=== PATIENT | male | born 1965 | race Caucasian/White ===

== ENCOUNTER 2017-02-14 19:33 | Emergency (ER) | payer SELFPAY ==
[~2017-02-14] VITALS: Ht 185.4 cm; Wt 113.0 kg
[2017-02-14] MEDS ORDERED: SODIUM CHLORIDE 0.9% 1,000 ML IV ONE (19:46)
[2017-02-14] MEDS ORDERED: SODIUM CHLORIDE 0.9% 1,000ML IVBOLUS ONE ×2 (20:00→23:00)
[2017-02-14 20:19] LABS: BLOOD UREA NITROGEN 15 mg/dL (7-18)
[2017-02-14] MEDS ORDERED: KETOROLAC 60 MG/2 ML IVPush ONE (20:30)
[2017-02-14] MEDS ORDERED: AMPICILLIN/SULBACTAM 3 GM in SODIUM CHLORIDE 0.9% 100 ML IV ONE (20:30)
[2017-02-14] MEDS ORDERED: ONDANSETRON 2MG/ML, 2ML IVPush ONE (20:30)
[2017-02-14] MEDS ORDERED: KETOROLAC 30 MG/1 ML ONE (20:30)
[2017-02-14] MEDS ORDERED: ONDANSETRON 2MG/ML, 2ML ONE (20:30)
[2017-02-14] MEDS ORDERED: morphine SULFATE 10 MG/ML, 1ML IVPush ONE (20:30)
[2017-02-14] MEDS ORDERED: MORPHINE SULFATE 4 MG/ML, 1ML ONE (20:30)
[2017-02-14 23:37] VITALS: BP 136/80
== END 2017-02-14 23:39 | disposition home or self-care (01) ==
LOC: ED 23:33
DX: L03.115 Cellulitis of right lower limb (principal)
CPT/HCPCS: 36415; 80048; 82040; 83605; 84145; 85025; 87040; 96361; 96365; 96375; 99284; J0295; J1885; J2270; J2405; J7030

== ENCOUNTER 2017-07-24 19:40 | Inpatient (IN) | payer OTHER ==
[~2017-07-24] VITALS: Ht 185.4 cm; Wt 115.6 kg
[2017-07-24] MEDS ORDERED: ACETAMINOPHEN 500 MG TABLET ONE (19:55)
[2017-07-24] MEDS ORDERED: IBUPROFEN 200 MG TABLET ONE (19:55)
[2017-07-24] MEDS ORDERED: SODIUM CHLORIDE FLUSH 10ML SYR IVF ONE (20:00)
[2017-07-24] MEDS ORDERED: IBUPROFEN 200 MG TABLET PO ONE (20:00)
[2017-07-24] MEDS ORDERED: SODIUM CHLORIDE 0.9% 1,000ML IVBOLUS ONE (20:00)
[2017-07-24] MEDS ORDERED: ACETAMINOPHEN 325 MG TABLET PO ONE (20:00)
[2017-07-24 20:29] LABS: HEMATOCRIT 43.5 % (39.2-51.8); HEMOGLOBIN 14.7 g/dL (13.7-18.0); WHITE BLOOD COUNT 14.3 x10^3/uL (3.4-10)
[2017-07-24 20:44] LABS: ASPARTATE AMINO TRANSFERASE 17 U/L (15-37); BLOOD UREA NITROGEN 11 mg/dL (7-18)
[2017-07-24] MEDS ORDERED: AMPICILLIN/SULBACTAM 3 GM in SODIUM CHLORIDE 0.9% 100 ML IVPB ONE (21:00)
[2017-07-24] MEDS ORDERED: VANCOMYCIN PER PHARMACY MC PRN (21:00)
[2017-07-24 21:02] LABS: RAPID INFLUENZA A Negative (Negative); RAPID INFLUENZA B Negative (Negative)
[2017-07-24] MEDS ORDERED: VANCOMYCIN 2,100 MG in SODIUM CHLORIDE 0.9% 500 ML IV ONE (21:30)
[2017-07-24] MEDS ORDERED: OXYcodone IR 5MG TABLET PO PRN (22:00)
[2017-07-24] MEDS ORDERED: ONDANSETRON 2MG/ML, 2ML IVPush PRN (22:00)
[2017-07-24] MEDS ORDERED: TEMAZEPAM 15 MG CAPSULE PO PRN (22:00)
[2017-07-24] MEDS ORDERED: hydrALAzine 20 MG/ML, 1ML IVPush PRN (22:00)
[2017-07-24] MEDS ORDERED: morphine SULFATE 10 MG/ML, 1ML IVPush PRN (22:00)
[2017-07-24 22:45] VITALS: BP 114/74
[2017-07-25] MEDS: AMPICILLIN/SULBACTAM 3 GM in SODIUM CHLORIDE 0.9% 100 ML IV SCH ×5 (00:10→22:30)
[2017-07-25] MEDS: SODIUM CHLORIDE 0.9% 1,000 ML IV SCH ×3 (00:10→22:30)
[2017-07-25 03:12] VITALS: BP 135/81
[2017-07-25] MEDS: ENOXAPARIN 40 MG/0.4 ML SQ SCH (05:32)
[2017-07-25 05:57] LABS: HEMATOCRIT 42.1 % (39.2-51.8); HEMOGLOBIN 14.4 g/dL (13.7-18.0); WHITE BLOOD COUNT 13.7 x10^3/uL (3.4-10)
[2017-07-25 06:13] LABS: BLOOD UREA NITROGEN 12 mg/dL (7-18)
[2017-07-25] MEDS ORDERED: PNEUMOCOCCAL 23 VACCINE IM-VACC ONE (06:30)
[2017-07-25] MEDS ORDERED: FLU VACC QS2017-18 (36MOS+) UP/PF 0.5 ML IM-VACC ONE (06:30)
[2017-07-25 07:42] VITALS: BP 138/85
[2017-07-25 13:55] VITALS: BP 132/87
[2017-07-25 19:29] VITALS: BP 118/76
[2017-07-25] MEDS: ACETAMINOPHEN 325 MG TABLET PO PRN (19:51)
[2017-07-26 00:47] VITALS: BP 132/71
[2017-07-26] MEDS: AMPICILLIN/SULBACTAM 3 GM in SODIUM CHLORIDE 0.9% 100 ML IV SCH ×4 (04:07→23:56)
[2017-07-26] MEDS: ENOXAPARIN 40 MG/0.4 ML SQ SCH (06:02)
[2017-07-26 06:14] LABS: HEMATOCRIT 40.6 % (39.2-51.8); HEMOGLOBIN 13.6 g/dL (13.7-18.0); WHITE BLOOD COUNT 11.1 x10^3/uL (3.4-10)
[2017-07-26 06:33] LABS: BLOOD UREA NITROGEN 13 mg/dL (7-18)
[2017-07-26 08:00] VITALS: BP 139/68
[2017-07-26] MEDS: SODIUM CHLORIDE 0.9% 1,000 ML IV SCH (10:31)
[2017-07-26] MEDS ORDERED: VANCOMYCIN PER PHARMACY MC PRN (12:00)
[2017-07-26] MEDS ORDERED: PHARMACOKINETIC MONITORING MC PRN (12:30)
[2017-07-26] MEDS ORDERED: PHARMACOKINETIC CONSULTATION MC ONE (12:30)
[2017-07-26] MEDS ORDERED: GADOBUTROL 10 MMOL/10 ML PFS ONE (13:20)
[2017-07-26 13:55] VITALS: BP 128/63
[2017-07-26] MEDS: VANCOMYCIN 2,000 MG in SODIUM CHLORIDE 0.9% 500 ML IV SCH (14:01)
[2017-07-26] MEDS: ACETAMINOPHEN 325 MG TABLET PO PRN (14:09)
[2017-07-26] MEDS ORDERED: KETOROLAC 30 MG/1 ML IVPush PRN (14:30)
[2017-07-26 20:32] VITALS: BP 157/75
[2017-07-27] MEDS: VANCOMYCIN 2,000 MG in SODIUM CHLORIDE 0.9% 500 ML IV SCH ×2 (02:04→14:15)
[2017-07-27] MEDS: SODIUM CHLORIDE 0.9% 1,000 ML IV SCH ×2 (02:04→14:15)
[2017-07-27 02:07] VITALS: BP 134/87
[2017-07-27] MEDS: AMPICILLIN/SULBACTAM 3 GM in SODIUM CHLORIDE 0.9% 100 ML IV SCH ×2 (05:22→11:20)
[2017-07-27] MEDS: ENOXAPARIN 40 MG/0.4 ML SQ SCH (05:22)
[2017-07-27 05:36] LABS: HEMATOCRIT 39.2 % (39.2-51.8); WHITE BLOOD COUNT 7.9 x10^3/uL (3.4-10)
[2017-07-27 07:07] VITALS: BP 146/89
[2017-07-27 13:42] VITALS: BP 127/84
[2017-07-27] MEDS ORDERED: ACET325T14 PO (14:43)
[2017-07-27] MEDS ORDERED: AMOX1TAB64 PO (14:43)
[2017-07-27] MEDS ORDERED: SULF1TAB24 PO (14:43)
[2017-07-27] MEDS ORDERED: IBUP-1484 PO (14:43)
== END 2017-07-27 17:35 | disposition home or self-care (01) | DRG 872 ==
LOC: ED 21:57 → SUATTDRO 21:57 → 4NOR 22:35 → ED 22:48
PROVIDERS: ADMIT Hospitalist; ATTEND Hospitalist
DX: A41.9 Sepsis, unspecified organism (principal); E44.0 Moderate protein-calorie malnutrition; L03.115 Cellulitis of right lower limb; E87.1 Hypo-osmolality and hyponatremia; R65.20 Severe sepsis without septic shock; F17.210 Nicotine dependence, cigarettes, uncomplicated; I10 Essential (primary) hypertension; Z68.33 Body mass index [BMI] 33.0-33.9, adult; Z90.49 Acquired absence of other specified parts of digestive tract; Z23 Encounter for immunization
CPT/HCPCS: 36415; 80048; 80053; 83605; 83735; 84100; 84145; 85025; 85651; 86140; 87040; 87400; 90686; 90732; 96361; 96365; 96368; A9585; J0295; J1650; J3370; J7030; J7040

== ENCOUNTER 2017-09-20 16:23 | Inpatient (IN) | payer MEDICAID, OTHER ==
[~2017-09-20] VITALS: Ht 185.4 cm; Wt 108.4 kg
[~2017-09-20 16:23] MED LIST: ACET325T14 PO; AMOX1TAB64 PO; IBUP-1484 PO; SULF1TAB24 PO
[2017-09-20] MEDS ORDERED: CEFAZOLIN PMX 1GM/50ML 50 ML IV ONE (20:00)
[2017-09-20] MEDS ORDERED: CEFTRIAXONE PMX 1GM/50ML 50 ML ONE (20:00)
[2017-09-20] MEDS ORDERED: SODIUM CHLORIDE FLUSH 10ML SYR IVF ONE (20:00)
[2017-09-20 20:06] LABS: HCT (SEDRATE) 42.8 % (39.2-51.8); MEAN CORPUSCULAR HEMOGLOBIN 29.4 pg (27.5-34.5); MEAN CORPUSCULAR HGB CONC 34.3 g/dL (33.2-36.2); MEAN CORPUSCULAR VOLUME 85.8 fL (81-97); MEAN PLATELET VOLUME 7.2 fL (7.4-10.4); PLATELET COUNT 236 x10^3/uL (130-400); RED BLOOD COUNT 4.98 x10^6/uL (4.38-5.82); RED CELL DISTRIBUTION WIDTH 14.3 % (9.4-14.8)
[2017-09-20 20:18] LABS: ALBUMIN 3.2 g/dL (3.4-5.0); ANION GAP 7 mmol/L (5-15); CALCIUM 8.9 mg/dL (8.5-10.1); CHLORIDE 101 mmol/L (98-107); CREATININE 1.15 mg/dL (0.7-1.3)
[2017-09-20 20:25] LABS: MD YES
[2017-09-20 20:27] LABS: BAND#(MANUAL) 0.77 x10^3/uL; BANDS%(MANUAL) 7 % (0-7); EOS#(MANUAL) 0.11 x10^3/uL (0.0-0.4); EOS% (MANUAL) 1 % (1-7); LYMPH#(MANUAL) 1.87 x10^3/uL (1-3.4); LYMPHS% (MANUAL) 17 % (22-44); MONOS#(MANUAL) 0.88 x10^3/uL (0.3-2.7); MONOS% (MANUAL) 8 % (2-9); REACTIVE LYMPHS # (MANUAL) 0.11 x10^3/uL (0-0); REACTIVE LYMPHS % (MANUAL) 1 % (0-0); SEG#(MANUAL) 7.26 x10^3/uL (1.8-6.8); SEGS% (MANUAL) 66 % (42-75)
[2017-09-20 20:28] LABS: <PLATELET ESTIMATE> ADEQUATE; <PLT MORPHOLOGY> NORMAL PLT MORPH; <RBC MORPHOLOGY> NORMAL
[2017-09-20 21:26] LABS: SEDIMENTATION RATE 36 mm/hr (0-10)
[2017-09-20] MEDS ORDERED: SODIUM CHLORIDE FLUSH 10ML SYR IVF PRN (22:00)
[2017-09-20] MEDS ORDERED: ACETAMINOPHEN 325 MG TABLET PO PRN (23:30)
[2017-09-20] MEDS: NICOTINE 14MG/24 HR PATCH.TD24 TD SCH (23:30)
[2017-09-20] MEDS ORDERED: ONDANSETRON 2MG/ML, 2ML IVPush PRN (23:30)
[2017-09-21 07:04] VITALS: BP 127/72
[2017-09-21 07:19] VITALS: BP 114/75
[2017-09-21] MEDS: CEFAZOLIN PMX 2GM/50ML 50 ML IV SCH ×2 (07:47→15:32)
[2017-09-21 16:40] VITALS: BP 116/65
[2017-09-21 19:56] VITALS: BP 132/80
[2017-09-21] MEDS: NICOTINE 14MG/24 HR PATCH.TD24 TD SCH (23:23)
[2017-09-22] MEDS: CEFAZOLIN PMX 2GM/50ML 50 ML IV SCH ×2 (00:25→08:29)
[2017-09-22 02:00] VITALS: BP 118/66
[2017-09-22 09:06] VITALS: BP 133/69
[2017-09-22] MEDS ORDERED: CEPH-368 PO ×2 (10:05→10:13)
== END 2017-09-22 12:10 | disposition home or self-care (01) | DRG 603 ==
LOC: ED 20:03 → EDIP 21:44 → 4NOR 23:45
PROVIDERS: ADMIT Internal Medicine; ATTEND Internal Medicine
DX: L03.012 Cellulitis of left finger (principal); M86.142 Other acute osteomyelitis, left hand; F17.200 Nicotine dependence, unspecified, uncomplicated; I10 Essential (primary) hypertension; Z90.49 Acquired absence of other specified parts of digestive tract; Z71.6 Tobacco abuse counseling
CPT/HCPCS: 36415; 80048; 82040; 85025; 85651; 86140; 87040; 96365; J0690

== ENCOUNTER 2017-10-17 12:14 | Inpatient (IN) | payer MEDICAID ==
[~2017-10-17] VITALS: Ht 185.4 cm; Wt 116.5 kg
[~2017-10-17 12:14] MED LIST changes: +CEPH-368 PO
[2017-10-17] MEDS ORDERED: AMPICILLIN/SULBACTAM 3 GM in SODIUM CHLORIDE 0.9% 100 ML IV ONE (13:43)
[2017-10-17] MEDS ORDERED: SODIUM CHLORIDE 0.9% 1,000ML IVBOLUS ONE (14:00)
[2017-10-17 14:15] LABS: BASOPHILS # (AUTO) 0.05 x10^3/uL (0-0.1); BASOPHILS % (AUTO) 1 % (0-1); EOSINOPHILS # (AUTO) 0.11 x10^3/uL (0-0.4); EOSINOPHILS % (AUTO) 1 % (1-7); LYMPHOCYTES # (AUTO) 1.73 x10^3/uL (1-3.4); LYMPHOCYTES % (AUTO) 20 % (22-44); MD NO; MEAN CORPUSCULAR HEMOGLOBIN 28.4 pg (27.5-34.5); MEAN CORPUSCULAR HGB CONC 33.3 g/dL (33.2-36.2); MEAN CORPUSCULAR VOLUME 85.2 fL (81-97); MEAN PLATELET VOLUME 7.5 fL (7.4-10.4); MONOCYTES # (AUTO) 0.92 x10^3/uL (0.2-0.8); MONOCYTES % (AUTO) 11 % (2-9); NEUTROPHILS % (AUTO) 67 % (42-75); PLATELET COUNT 266 x10^3/uL (130-400); RED CELL DISTRIBUTION WIDTH 14.4 % (9.4-14.8)
[2017-10-17 14:26] LABS: ANION GAP 7 mmol/L (5-15); CALCIUM 8.3 mg/dL (8.5-10.1); CHLORIDE 106 mmol/L (98-107); CREATININE 0.93 mg/dL (0.7-1.3)
[2017-10-17 15:46] VITALS: BP 138/79
[2017-10-17] MEDS ORDERED: BACITRACIN 50,000 UNIT ONE (16:37)
[2017-10-17] MEDS ORDERED: BACITRACIN OINT 500U/GM, 15 GM ONE (16:37)
[2017-10-17] MEDS ORDERED: BUPIVACAINE/PF 0.5% ONE (16:37)
[2017-10-17] MEDS ORDERED: FENTANYL PF 100 MCG/2ML ONE ×2 (17:08→18:19)
[2017-10-17] MEDS ORDERED: MIDAZOLAM 1 MG/ML, 2ML ONE (17:08)
[2017-10-17] MEDS ORDERED: PROPOFOL 10 MG/ML, 20ML ONE (17:14)
[2017-10-17] MEDS ORDERED: SUCCINYLCHOLINE 20 MG/ML, 10ML ONE (17:14)
[2017-10-17] MEDS ORDERED: ONDANSETRON 2MG/ML, 2ML ONE (17:14)
[2017-10-17] MEDS ORDERED: METOCLOPRAMIDE 5 MG/ML, 2ML ONE (17:14)
[2017-10-17] MEDS ORDERED: HYDROmorphone 1 MG/ML, 1ML IV PRN (17:30)
[2017-10-17] MEDS ORDERED: hydrALAzine 20 MG/ML, 1ML IV PRN (17:30)
[2017-10-17] MEDS ORDERED: EPHEDRINE 50 MG/ML, 1ML IVPush PRN (17:30)
[2017-10-17] MEDS ORDERED: OXYcodone 5 MG/5 ML ORAL.SOL UDC PO PRN (17:30)
[2017-10-17] MEDS ORDERED: LABETALOL 5MG/ML, 20ML IV PRN (17:30)
[2017-10-17] MEDS ORDERED: ACETAMINOPHEN 325 MG TABLET PO PRN (17:30)
[2017-10-17] MEDS ORDERED: METOPROLOL 1 MG/ML, 5ML IV PRN (17:30)
[2017-10-17] MEDS ORDERED: MEPERIDINE/PF 25MG/0.5ML IVPush PRN (17:30)
[2017-10-17] MEDS ORDERED: ONDANSETRON 2MG/ML, 2ML IVPush PRN (17:30)
[2017-10-17] MEDS ORDERED: ALBUTEROL SULFATE 2.5 MG/3 ML NPPB PRN (17:30)
[2017-10-17] MEDS ORDERED: FENTANYL PF 100 MCG/2ML IV PRN (17:30)
[2017-10-17] MEDS ORDERED: ACETAMINOPHEN 650 MG/20.3 ML UDC ONE (18:18)
[2017-10-17] MEDS ORDERED: OXYcodone 5 MG/5 ML ORAL.SOL UDC ONE (18:19)
[2017-10-17] MEDS ORDERED: VANCOMYCIN PER PHARMACY MC PRN (19:30)
[2017-10-17] MEDS ORDERED: OXYcodone/APAP 5/325MG TABLET PO PRN (19:30)
[2017-10-17] MEDS ORDERED: ONDANSETRON 2MG/ML, 2ML IV PRN (19:30)
[2017-10-17] MEDS ORDERED: DIPHENHYDRAMINE 25 MG CAPSULE PO PRN (19:30)
[2017-10-17] MEDS ORDERED: PHARMACOKINETIC CONSULTATION MC ONE (20:00)
[2017-10-17] MEDS ORDERED: PHARMACOKINETIC MONITORING MC PRN (20:00)
[2017-10-17] MEDS: CEFAZOLIN PMX 2GM/50ML 50 ML IVPB SCH (21:58)
[2017-10-17] MEDS: POTASSIUM CHLORIDE 20 MEQ in D5%-0.45% NACL 1,000 ML IV SCH (21:58)
[2017-10-17] MEDS: SODIUM CHLORIDE FLUSH 10ML SYR IVF SCH (22:05)
[2017-10-17] MEDS: VANCOMYCIN 2,200 MG in SODIUM CHLORIDE 0.9% 500 ML IV SCH (22:45)
[2017-10-17 23:03] VITALS: BP 124/77
[2017-10-18] MEDS ORDERED: CEFAZOLIN PMX 2GM/50ML 50 ML IVPB SCH (01:00)
[2017-10-18 02:46] VITALS: BP 125/78
[2017-10-18] MEDS: POTASSIUM CHLORIDE 20 MEQ in D5%-0.45% NACL 1,000 ML IV SCH ×3 (03:35→20:50)
[2017-10-18 05:18] LABS: BASOPHILS # (AUTO) 0.02 x10^3/uL (0-0.1); BASOPHILS % (AUTO) 0 % (0-1); EOSINOPHILS % (AUTO) 0 % (1-7); LYMPHOCYTES # (AUTO) 1.15 x10^3/uL (1-3.4); LYMPHOCYTES % (AUTO) 15 % (22-44); MD NO; MEAN CORPUSCULAR HEMOGLOBIN 28.6 pg (27.5-34.5); MEAN CORPUSCULAR HGB CONC 33.3 g/dL (33.2-36.2); MEAN CORPUSCULAR VOLUME 85.9 fL (81-97); MEAN PLATELET VOLUME 7.4 fL (7.4-10.4); MONOCYTES # (AUTO) 0.67 x10^3/uL (0.2-0.8); MONOCYTES % (AUTO) 9 % (2-9); NEUTROPHILS # (AUTO) 5.86 x10^3/uL (1.8-6.8); NEUTROPHILS % (AUTO) 76 % (42-75); PLATELET COUNT 264 x10^3/uL (130-400); RED BLOOD COUNT 4.29 x10^6/uL (4.38-5.82); RED CELL DISTRIBUTION WIDTH 14.2 % (9.4-14.8)
[2017-10-18] MEDS: CEFAZOLIN PMX 2GM/50ML 50 ML IVPB SCH ×2 (06:26→14:31)
[2017-10-18 07:47] VITALS: BP 137/80
[2017-10-18] MEDS: SODIUM CHLORIDE FLUSH 10ML SYR IVF SCH ×2 (09:00→20:50)
[2017-10-18] MEDS: VANCOMYCIN 2,200 MG in SODIUM CHLORIDE 0.9% 500 ML IV SCH (10:15)
[2017-10-18 13:46] VITALS: BP 122/64
[2017-10-18] MEDS: CEFTAROLINE 600 MG in SODIUM CHLORIDE 0.9% 100 ML IV SCH (18:17)
[2017-10-18 19:03] LABS: HCT (SEDRATE) 36.1 % (39.2-51.8)
[2017-10-18 19:25] VITALS: BP 133/76
[2017-10-19 01:50] VITALS: BP_SYST 124; BP_SYST 134; BP_DIAS 48; BP_DIAS 72
[2017-10-19] MEDS: POTASSIUM CHLORIDE 20 MEQ in D5%-0.45% NACL 1,000 ML IV SCH ×3 (04:44→20:00)
[2017-10-19 05:37] LABS: ALBUMIN 2.5 g/dL (3.4-5.0); ANION GAP 5 mmol/L (5-15); CALCIUM 7.9 mg/dL (8.5-10.1); CHLORIDE 107 mmol/L (98-107)
[2017-10-19 05:42] LABS: ALANINE AMINOTRANSFERASE 17 U/L (12-78); ALKALINE PHOSPHATASE 103 U/L (45-117); BILIRUBIN,TOTAL 0.4 mg/dL (0.2-1.0); CREATININE 0.82 mg/dL (0.7-1.3); TOTAL PROTEIN 6.9 g/dL (6.4-8.2)
[2017-10-19] MEDS: CEFTAROLINE 600 MG in SODIUM CHLORIDE 0.9% 100 ML IV SCH ×2 (06:02→17:38)
[2017-10-19 07:30] VITALS: BP 153/92
[2017-10-19] MEDS: SODIUM CHLORIDE FLUSH 10ML SYR IVF SCH ×2 (09:00→20:45)
[2017-10-19 13:39] VITALS: BP 159/88
[2017-10-19 20:21] VITALS: BP 126/71
[2017-10-20 01:09] VITALS: BP 157/83
[2017-10-20] MEDS: POTASSIUM CHLORIDE 20 MEQ in D5%-0.45% NACL 1,000 ML IV SCH ×3 (04:05→20:15)
[2017-10-20] MEDS: CEFTAROLINE 600 MG in SODIUM CHLORIDE 0.9% 100 ML IV SCH (05:51)
[2017-10-20 08:24] VITALS: BP 159/94
[2017-10-20] MEDS: SODIUM CHLORIDE FLUSH 10ML SYR IVF SCH ×2 (09:00→21:11)
[2017-10-20] MEDS: SODIUM CHLORIDE 0.9% IVPB SCH (11:12)
[2017-10-20] MEDS: DAPTOMYCIN IVPB SCH (11:12)
[2017-10-20 13:49] VITALS: BP 144/80
[2017-10-20 19:36] VITALS: BP 128/75
[2017-10-21 01:15] VITALS: BP 134/74
[2017-10-21] MEDS: POTASSIUM CHLORIDE 20 MEQ in D5%-0.45% NACL 1,000 ML IV SCH ×3 (04:12→20:15)
[2017-10-21] MEDS: morphine SULFATE 10 MG/ML, 1ML IV PRN (06:54)
[2017-10-21 07:30] VITALS: BP 122/61
[2017-10-21] MEDS: SODIUM CHLORIDE FLUSH 10ML SYR IVF SCH ×2 (09:14→23:05)
[2017-10-21] MEDS: DAPTOMYCIN IVPB SCH (12:57)
[2017-10-21] MEDS: SODIUM CHLORIDE 0.9% IVPB SCH (12:57)
[2017-10-21 14:06] VITALS: BP 121/78
[2017-10-21] MEDS: HYDROcodone/APAP 5/325 TABLET PO PRN ×3 (15:09→23:10)
[2017-10-21 20:07] VITALS: BP 103/65
[2017-10-22 01:32] VITALS: BP 113/71
[2017-10-22] MEDS: HYDROcodone/APAP 5/325 TABLET PO PRN ×5 (03:16→23:15)
[2017-10-22] MEDS: POTASSIUM CHLORIDE 20 MEQ in D5%-0.45% NACL 1,000 ML IV SCH ×3 (03:23→19:41)
[2017-10-22 06:09] LABS: BASOPHILS # (AUTO) 0.04 x10^3/uL (0-0.1); BASOPHILS % (AUTO) 0 % (0-1); EOSINOPHILS # (AUTO) 0.56 x10^3/uL (0-0.4); EOSINOPHILS % (AUTO) 6 % (1-7); LYMPHOCYTES # (AUTO) 2.09 x10^3/uL (1-3.4); LYMPHOCYTES % (AUTO) 22 % (22-44); MD NO; MEAN CORPUSCULAR HGB CONC 33.5 g/dL (33.2-36.2); MEAN CORPUSCULAR VOLUME 86.7 fL (81-97); MEAN PLATELET VOLUME 7.3 fL (7.4-10.4); MONOCYTES # (AUTO) 1.04 x10^3/uL (0.2-0.8); MONOCYTES % (AUTO) 11 % (2-9); NEUTROPHILS # (AUTO) 5.92 x10^3/uL (1.8-6.8); NEUTROPHILS % (AUTO) 61 % (42-75); PLATELET COUNT 312 x10^3/uL (130-400); RED BLOOD COUNT 4.87 x10^6/uL (4.38-5.82)
[2017-10-22 06:18] LABS: CHLORIDE 102 mmol/L (98-107)
[2017-10-22 06:23] LABS: HCT (SEDRATE) 36.1 % (39.2-51.8)
[2017-10-22 06:37] LABS: ALANINE AMINOTRANSFERASE 19 U/L (12-78); ALBUMIN 2.5 g/dL (3.4-5.0); ALKALINE PHOSPHATASE 122 U/L (45-117); ANION GAP 6 mmol/L (5-15); BILIRUBIN,TOTAL 0.5 mg/dL (0.2-1.0); CALCIUM 8.4 mg/dL (8.5-10.1); CREATINE KINASE, TOTAL 45 U/L (39-308); CREATININE 0.89 mg/dL (0.7-1.3); TOTAL PROTEIN 7.4 g/dL (6.4-8.2)
[2017-10-22 07:31] VITALS: BP 114/66
[2017-10-22] MEDS: SODIUM CHLORIDE FLUSH 10ML SYR IVF SCH ×2 (07:51→19:42)
[2017-10-22] MEDS: SODIUM CHLORIDE 0.9% IVPB SCH (11:36)
[2017-10-22] MEDS: metroNIDAZOLE 500 MG TABLET PO SCH ×2 (11:36→19:36)
[2017-10-22] MEDS: DAPTOMYCIN IVPB SCH (11:36)
[2017-10-22 13:38] VITALS: BP 125/78
[2017-10-22 20:21] VITALS: BP 103/62
[2017-10-23] MEDS: morphine SULFATE 10 MG/ML, 1ML IV PRN ×7 (00:24→13:28)
[2017-10-23] MEDS: metroNIDAZOLE 500 MG TABLET PO SCH ×2 (04:28→12:31)
[2017-10-23] MEDS: HYDROcodone/APAP 5/325 TABLET PO PRN ×3 (04:28→12:04)
[2017-10-23] MEDS: POTASSIUM CHLORIDE 20 MEQ in D5%-0.45% NACL 1,000 ML IV SCH (04:32)
[2017-10-23 04:38] VITALS: BP 115/76
[2017-10-23 06:40] VITALS: BP 108/70
[2017-10-23] MEDS: SODIUM CHLORIDE FLUSH 10ML SYR IVF SCH (07:34)
[2017-10-23] MEDS: DAPTOMYCIN IVPB SCH (12:04)
[2017-10-23] MEDS: SODIUM CHLORIDE 0.9% IVPB SCH (12:04)
== END 2017-10-23 16:41 | disposition home or self-care (01) | DRG 514 ==
LOC: ED 14:09 → EDIP 14:15 → 4NOR 15:52
PROVIDERS: ADMIT Orthopaedic Surgery; ATTEND Orthopaedic Surgery
PROC: 0X6P0Z1 Detachment at Left Index Finger, High, Open Approach (ICD-10-PCS; principal; 2017-10-17 17:00)
PROC: 02HV33Z Insertion of Infusion Device into Superior Vena Cava, Percutaneous Approach (ICD-10-PCS; 2017-10-19)
PROC: B548ZZA Ultrasonography of Superior Vena Cava, Guidance (ICD-10-PCS; 2017-10-19)
DX: M86.142 Other acute osteomyelitis, left hand (principal); F17.210 Nicotine dependence, cigarettes, uncomplicated; I10 Essential (primary) hypertension; M65.142 Other infective (teno)synovitis, left hand; Z22.322 Carrier or suspected carrier of Methicillin resistant Staphylococcus aureus
CPT/HCPCS: 36415; 36569; 74018; 76937; 77001; 80048; 80053; 82040; 82550; 83605; 85025; 85651; 86140; 87040; 87070; 87075; 87077; 87147; 87186; 87205; 96361; 96365; J0295; J0690; J0712; J0878; J2250; J2405; J2704; J3010; J3370; J3480; J3490; C1751; J0330; J2270; J2765; J7030; J7040

== ENCOUNTER 2017-10-25 02:55 | Inpatient (IN) | payer MEDICAID ==
[~2017-10-25] VITALS: Ht 175.3 cm; Wt 83.0 kg
[2017-10-25] MEDS ORDERED: ONDANSETRON 2MG/ML, 2ML IVPush ONE (03:30)
[2017-10-25] MEDS ORDERED: MORPHINE SULFATE 4 MG/ML, 1ML IVPush PRN (03:30)
[2017-10-25] MEDS ORDERED: SODIUM CHLORIDE 0.9% 1,000ML IVBOLUS ONE ×2 (03:30→04:30)
[2017-10-25] MEDS ORDERED: SODIUM CHLORIDE FLUSH 10ML SYR IVF ONE (03:30)
[2017-10-25] MEDS ORDERED: KETOROLAC 30 MG/1 ML IVPush ONE (03:30)
[2017-10-25] MEDS ORDERED: ACETAMINOPHEN 325 MG TABLET PO ONE (03:30)
[2017-10-25] MEDS ORDERED: ACETAMINOPHEN 325 MG TABLET ONE (03:56)
[2017-10-25] MEDS ORDERED: KETOROLAC 30 MG/1 ML ONE (03:56)
[2017-10-25] MEDS ORDERED: ONDANSETRON 2MG/ML, 2ML ONE (03:56)
[2017-10-25] MEDS ORDERED: MORPHINE SULFATE 4 MG/ML, 1ML ONE (03:56)
[2017-10-25 04:08] LABS: BASOPHILS # (AUTO) 0.03 x10^3/uL (0-0.1); BASOPHILS % (AUTO) 0 % (0-1); EOSINOPHILS # (AUTO) 0.05 x10^3/uL (0-0.4); EOSINOPHILS % (AUTO) 0 % (1-7); LYMPHOCYTES # (AUTO) 1.02 x10^3/uL (1-3.4); LYMPHOCYTES % (AUTO) 9 % (22-44); MD NO; MEAN CORPUSCULAR HEMOGLOBIN 28.9 pg (27.5-34.5); MEAN CORPUSCULAR HGB CONC 33.8 g/dL (33.2-36.2); MEAN CORPUSCULAR VOLUME 85.5 fL (81-97); MONOCYTES % (AUTO) 11 % (2-9); NEUTROPHILS % (AUTO) 79 % (42-75); PLATELET COUNT 292 x10^3/uL (130-400); RED BLOOD COUNT 4.45 x10^6/uL (4.38-5.82); RED CELL DISTRIBUTION WIDTH 13.8 % (9.4-14.8)
[2017-10-25] MEDS ORDERED: SODIUM CHLORIDE 0.9% 1,000 ML IV ONE (04:10)
[2017-10-25 04:17] LABS: ALANINE AMINOTRANSFERASE 24 U/L (12-78); ALBUMIN 2.4 g/dL (3.4-5.0); ANION GAP 10 mmol/L (5-15); CALCIUM 8.2 mg/dL (8.5-10.1); CHLORIDE 100 mmol/L (98-107); CREATININE 1.02 mg/dL (0.7-1.3)
[2017-10-25 04:21] LABS: ALKALINE PHOSPHATASE 122 U/L (45-117); BILIRUBIN,TOTAL 0.4 mg/dL (0.2-1.0); TOTAL PROTEIN 8.1 g/dL (6.4-8.2); TROPONIN I < 0.015 ng/mL (0.000-0.045)
[2017-10-25] MEDS ORDERED: CEFEPIME 1 GM in DEXTROSE 5% 50 ML IV ONE (04:30)
[2017-10-25] MEDS ORDERED: VANCOMYCIN PER PHARMACY MC PRN ×2 (04:30→10:00)
[2017-10-25] MEDS ORDERED: VANCOMYCIN 2,000 MG in SODIUM CHLORIDE 0.9% 500 ML IV ONE (04:30)
[2017-10-25] MEDS ORDERED: AZITHROMYCIN 500 MG in SODIUM CHLORIDE 0.9% 250 ML IVPB ONE (04:30)
[2017-10-25 04:58] LABS: INTERNATIONAL NORMALIZED RATIO 1.01 (0.93-1.1); PROTHROMBIN TIME 10.4 Seconds (9.6-11.5)
[2017-10-25] MEDS ORDERED: hydrALAzine 20 MG/ML, 1ML IVPush PRN (05:30)
[2017-10-25] MEDS ORDERED: POLYETHYLENE GLYCOL 17 GM PACKET PO PRN (05:30)
[2017-10-25] MEDS ORDERED: ONDANSETRON 2MG/ML, 2ML IVPush PRN (05:30)
[2017-10-25 06:36] VITALS: BP 107/65
[2017-10-25] MEDS: ENOXAPARIN 40 MG/0.4 ML SQ SCH (08:15)
[2017-10-25] MEDS ORDERED: PHARMACOKINETIC MONITORING MC PRN (10:00)
[2017-10-25] MEDS ORDERED: PHARMACOKINETIC CONSULTATION MC ONE (10:00)
[2017-10-25] MEDS: PIPERACILLIN/TAZO/PMX 3.375GM 50 ML IV SCH ×3 (10:19→22:00)
[2017-10-25] MEDS: LACTATED RINGERS 1,000 ML IV SCH ×2 (10:19→19:35)
[2017-10-25 10:26] VITALS: BP 99/64
[2017-10-25] MEDS: metroNIDAZOLE 500 MG TABLET PO SCH ×2 (13:30→21:30)
[2017-10-25] MEDS: CEFTAROLINE 600 MG in SODIUM CHLORIDE 0.9% 100 ML IV SCH ×2 (13:32→21:31)
[2017-10-25] MEDS: HYDROcodone/APAP 5/325 TABLET PO PRN ×2 (13:37→19:33)
[2017-10-25 15:05] VITALS: BP 137/74
[2017-10-25 19:21] VITALS: BP 148/75
[2017-10-25] MEDS ORDERED: VANCOMYCIN 2,000 MG in SODIUM CHLORIDE 0.9% 500 ML IV SCH (23:00)
[2017-10-26 00:20] VITALS: BP 131/60
[2017-10-26] MEDS: HYDROcodone/APAP 5/325 TABLET PO PRN ×5 (02:04→21:37)
[2017-10-26 03:55] LABS: BASOPHILS # (AUTO) 0.01 x10^3/uL (0-0.1); BASOPHILS % (AUTO) 0 % (0-1); EOSINOPHILS # (AUTO) 0.15 x10^3/uL (0-0.4); EOSINOPHILS % (AUTO) 2 % (1-7); LYMPHOCYTES # (AUTO) 1.14 x10^3/uL (1-3.4); LYMPHOCYTES % (AUTO) 12 % (22-44); MD NO; MEAN CORPUSCULAR HEMOGLOBIN 28.7 pg (27.5-34.5); MEAN CORPUSCULAR HGB CONC 33.7 g/dL (33.2-36.2); MEAN CORPUSCULAR VOLUME 85.2 fL (81-97); MEAN PLATELET VOLUME 6.8 fL (7.4-10.4); MONOCYTES # (AUTO) 1.08 x10^3/uL (0.2-0.8); MONOCYTES % (AUTO) 12 % (2-9); NEUTROPHILS # (AUTO) 6.78 x10^3/uL (1.8-6.8); NEUTROPHILS % (AUTO) 74 % (42-75); PLATELET COUNT 267 x10^3/uL (130-400); RED BLOOD COUNT 3.64 x10^6/uL (4.38-5.82); RED CELL DISTRIBUTION WIDTH 13.9 % (9.4-14.8)
[2017-10-26 03:57] LABS: ANION GAP 7 mmol/L (5-15); CALCIUM 7.6 mg/dL (8.5-10.1); CHLORIDE 105 mmol/L (98-107); CREATININE 0.89 mg/dL (0.7-1.3)
[2017-10-26] MEDS: LACTATED RINGERS 1,000 ML IV SCH ×2 (04:10→10:07)
[2017-10-26] MEDS: PIPERACILLIN/TAZO/PMX 3.375GM 50 ML IV SCH (04:10)
[2017-10-26] MEDS: metroNIDAZOLE 500 MG TABLET PO SCH ×3 (05:16→21:22)
[2017-10-26] MEDS: CEFTAROLINE 600 MG in SODIUM CHLORIDE 0.9% 100 ML IV SCH ×3 (05:16→21:22)
[2017-10-26] MEDS: ENOXAPARIN 40 MG/0.4 ML SQ SCH (05:16)
[2017-10-26 07:16] VITALS: BP 120/68
[2017-10-26 16:14] VITALS: BP 159/78
[2017-10-26 19:21] VITALS: BP 168/98
[2017-10-27 01:28] VITALS: BP 176/83
[2017-10-27] MEDS: LACTATED RINGERS 1,000 ML IV SCH ×3 (01:44→22:50)
[2017-10-27] MEDS: HYDROcodone/APAP 5/325 TABLET PO PRN (01:45)
[2017-10-27] MEDS ORDERED: SODIUM CHLORIDE INHALATION 7%, 4 ML NPPB ONE (02:00)
[2017-10-27] MEDS: CEFTAROLINE 600 MG in SODIUM CHLORIDE 0.9% 100 ML IV SCH ×3 (05:51→21:28)
[2017-10-27] MEDS: metroNIDAZOLE 500 MG TABLET PO SCH ×3 (05:51→20:41)
[2017-10-27] MEDS: ENOXAPARIN 40 MG/0.4 ML SQ SCH (05:53)
[2017-10-27 06:44] LABS: BASOPHILS # (AUTO) 0.03 x10^3/uL (0-0.1); BASOPHILS % (AUTO) 0 % (0-1); EOSINOPHILS # (AUTO) 0.12 x10^3/uL (0-0.4); EOSINOPHILS % (AUTO) 1 % (1-7); LYMPHOCYTES # (AUTO) 1.51 x10^3/uL (1-3.4); LYMPHOCYTES % (AUTO) 16 % (22-44); MD NO; MEAN CORPUSCULAR HEMOGLOBIN 28.6 pg (27.5-34.5); MEAN CORPUSCULAR HGB CONC 33.6 g/dL (33.2-36.2); MEAN PLATELET VOLUME 7.1 fL (7.4-10.4); MONOCYTES % (AUTO) 13 % (2-9); NEUTROPHILS # (AUTO) 6.43 x10^3/uL (1.8-6.8); NEUTROPHILS % (AUTO) 69 % (42-75); PLATELET COUNT 336 x10^3/uL (130-400); RED BLOOD COUNT 3.81 x10^6/uL (4.38-5.82); RED CELL DISTRIBUTION WIDTH 13.8 % (9.4-14.8)
[2017-10-27 06:52] LABS: ALANINE AMINOTRANSFERASE 21 U/L (12-78); ANION GAP 9 mmol/L (5-15); CALCIUM 8.1 mg/dL (8.5-10.1); CHLORIDE 102 mmol/L (98-107); CREATININE 0.89 mg/dL (0.7-1.3)
[2017-10-27 06:59] LABS: ALKALINE PHOSPHATASE 103 U/L (45-117); BILIRUBIN,TOTAL 0.5 mg/dL (0.2-1.0); TOTAL PROTEIN 7.3 g/dL (6.4-8.2)
[2017-10-27 07:09] VITALS: BP 154/83
[2017-10-27 07:49] LABS: HCT (SEDRATE) 32.4 % (39.2-51.8)
[2017-10-27] MEDS ORDERED: KETOROLAC 30 MG/1 ML IVPush SCH (08:00)
[2017-10-27] MEDS ORDERED: DOXYCYCLINE 100MG TABLET PO ONE (13:00)
[2017-10-27 13:17] VITALS: BP 168/99
[2017-10-27] MEDS: KETOROLAC 30 MG/1 ML IVPush PRN ×2 (16:22→22:49)
[2017-10-27] MEDS: DOXYCYCLINE 100MG TABLET PO SCH (20:40)
[2017-10-27 20:42] VITALS: BP 167/100
[2017-10-28] MEDS: LACTATED RINGERS 1,000 ML IV SCH ×3 (02:20→20:44)
[2017-10-28 02:39] VITALS: BP 150/93
[2017-10-28] MEDS: KETOROLAC 30 MG/1 ML IVPush PRN ×2 (05:07→23:01)
[2017-10-28] MEDS: CEFTAROLINE 600 MG in SODIUM CHLORIDE 0.9% 100 ML IV SCH ×3 (06:12→20:44)
[2017-10-28] MEDS: metroNIDAZOLE 500 MG TABLET PO SCH ×3 (06:13→20:44)
[2017-10-28] MEDS: ENOXAPARIN 40 MG/0.4 ML SQ SCH (06:14)
[2017-10-28 06:56] VITALS: BP 165/93
[2017-10-28] MEDS: DOXYCYCLINE 100MG TABLET PO SCH ×2 (11:44→20:43)
[2017-10-28 12:52] VITALS: BP 158/93
[2017-10-28 20:19] VITALS: BP 150/80
[2017-10-29 02:55] VITALS: BP 164/96
[2017-10-29] MEDS: metroNIDAZOLE 500 MG TABLET PO SCH ×2 (05:21→13:08)
[2017-10-29] MEDS: CEFTAROLINE 600 MG in SODIUM CHLORIDE 0.9% 100 ML IV SCH ×2 (05:21→13:08)
[2017-10-29] MEDS: ENOXAPARIN 40 MG/0.4 ML SQ SCH (05:21)
[2017-10-29] MEDS: LACTATED RINGERS 1,000 ML IV SCH ×3 (05:21→13:02)
[2017-10-29 07:57] LABS: HCT (SEDRATE) 35.6 % (39.2-51.8)
[2017-10-29 08:01] LABS: BASOPHILS # (AUTO) 0.03 x10^3/uL (0-0.1); BASOPHILS % (AUTO) 0 % (0-1); EOSINOPHILS # (AUTO) 0.31 x10^3/uL (0-0.4); EOSINOPHILS % (AUTO) 3 % (1-7); LYMPHOCYTES % (AUTO) 19 % (22-44); MD NO; MEAN CORPUSCULAR HEMOGLOBIN 28.8 pg (27.5-34.5); MEAN CORPUSCULAR HGB CONC 33.7 g/dL (33.2-36.2); MEAN CORPUSCULAR VOLUME 85.5 fL (81-97); MEAN PLATELET VOLUME 6.7 fL (7.4-10.4); MONOCYTES % (AUTO) 11 % (2-9); NEUTROPHILS # (AUTO) 6.14 x10^3/uL (1.8-6.8); NEUTROPHILS % (AUTO) 66 % (42-75); PLATELET COUNT 432 x10^3/uL (130-400); RED BLOOD COUNT 4.16 x10^6/uL (4.38-5.82); RED CELL DISTRIBUTION WIDTH 13.8 % (9.4-14.8)
[2017-10-29 08:03] LABS: ALBUMIN 1.9 g/dL (3.4-5.0); ANION GAP 9 mmol/L (5-15); CALCIUM 7.9 mg/dL (8.5-10.1); CHLORIDE 107 mmol/L (98-107)
[2017-10-29 08:04] VITALS: BP 163/96
[2017-10-29 08:11] LABS: ALANINE AMINOTRANSFERASE 25 U/L (12-78); ALKALINE PHOSPHATASE 97 U/L (45-117); BILIRUBIN,TOTAL 0.3 mg/dL (0.2-1.0); CREATININE 0.84 mg/dL (0.7-1.3); TOTAL PROTEIN 7.4 g/dL (6.4-8.2)
[2017-10-29] MEDS: DOXYCYCLINE 100MG TABLET PO SCH (08:35)
[2017-10-29] MEDS ORDERED: DOXY100T PO (12:06)
[2017-10-29] MEDS ORDERED: METR500T PO (12:06)
[2017-10-29 13:08] VITALS: BP 154/81
[2017-10-29 14:00] VITALS: BP 138/74
== END 2017-10-29 15:06 | disposition home or self-care (01) | DRG 871 ==
LOC: ED 03:43 → EDIP 04:42 → 4NOR 05:52 → DCLOUNGE 10-29 14:48
PROVIDERS: ADMIT Hospitalist; ATTEND Hospitalist
DX: A41.9 Sepsis, unspecified organism (principal); E43 Unspecified severe protein-calorie malnutrition; J96.01 Acute respiratory failure with hypoxia; J15.9 Unspecified bacterial pneumonia; E87.1 Hypo-osmolality and hyponatremia; M86.8X8 Other osteomyelitis, other site; F17.210 Nicotine dependence, cigarettes, uncomplicated; I10 Essential (primary) hypertension; M65.9 Synovitis and tenosynovitis, unspecified; Y95 Nosocomial condition; R73.9 Hyperglycemia, unspecified; Z68.27 Body mass index [BMI] 27.0-27.9, adult; D63.8 Anemia in other chronic diseases classified elsewhere
CPT/HCPCS: 36415; 71045; 80048; 80053; 83735; 84100; 84484; 85025; 85610; 85651; 85730; 86140; 87015; 87040; 87116; 87206; 87486; 87581; 93005; 96365; 96375; J0456; J0692; J0712; J1650; J1885; J2405; J2543; J3370; J7030; J7040; J7050; J7120

== ENCOUNTER 2018-12-18 23:10 | Emergency (ER) | payer MEDICAID ==
[~2018-12-18] VITALS: Ht 185.4 cm; Wt 116.0 kg
[~2018-12-18 23:10] MED LIST changes: +ACID1TAB3 PO; +DOXY100T PO; +METR500T PO
[2018-12-18 23:12] VITALS: BP 122/67
--- NOTE | 2018-12-19 00:02 | NUR ---
PT TO ROOM IN GOWN AND AWAITING ERP AND ORDERS.
[2018-12-19] MEDS ORDERED: KETOROLAC 30 MG/1 ML ONE (00:11)
[2018-12-19] MEDS ORDERED: OXYcodone/APAP 5/325MG TABLET ONE (00:11)
[2018-12-19] MEDS ORDERED: KETOROLAC 30 MG/1 ML IM ONE (00:30)
[2018-12-19] MEDS ORDERED: OXYcodone/APAP 5/325MG TABLET PO ONE (00:30)
== END 2018-12-19 00:59 | disposition home or self-care (01) ==
LOC: ED 12-19 00:40
DX: M70.42 Prepatellar bursitis, left knee (principal); Y93.89 Activity, other specified
CPT/HCPCS: 73564; 96372; 99283; J1885

== ENCOUNTER 2019-03-18 19:58 | Inpatient (IN) | payer MEDICAID ==
[~2019-03-18] VITALS: Ht 185.4 cm; Wt 103.5 kg
--- NOTE | 2019-03-18 20:11 | NUR ---
PT WITH INCREASE IN TEMP AND HR. HX MRSA. DISCUSSED WITH ED WALLY, CYNTHIA - PT TO CORE #13 VIA WHEELCHAIR.
[2019-03-18] MEDS: SODIUM CHLORIDE 0.9% 1,000 ML IV ONE ×2 (20:44→21:34)
[2019-03-18] MEDS ORDERED: VANCOMYCIN PER PHARMACY IV ONE (21:00)
[2019-03-18] MEDS ORDERED: SODIUM CHLORIDE FLUSH 10ML SYR IVF ONE (21:00)
[2019-03-18] MEDS ORDERED: MORPHINE SULFATE 4 MG/ML, 1ML IV PRN (21:00)
[2019-03-18] MEDS ORDERED: ACETAMINOPHEN 500 MG TABLET PO ONE (21:00)
[2019-03-18] MEDS ORDERED: PIPERACILLIN/TAZO/PMX 4.5GM 100 ML IVPB ONE (21:00)
[2019-03-18] MEDS ORDERED: SODIUM CHLORIDE 0.9% 1,000ML IVBOLUS ONE ×2 (21:00→23:00)
[2019-03-18] MEDS ORDERED: VANCOMYCIN 2,000 MG in SODIUM CHLORIDE 0.9% 500 ML IV ONE (21:00)
[2019-03-18] MEDS ORDERED: ONDANSETRON 2MG/ML, 2ML IVPush ONE (21:00)
[2019-03-18] MEDS ORDERED: ACETAMINOPHEN 500 MG TABLET ONE (21:30)
[2019-03-18] MEDS ORDERED: ONDANSETRON 2MG/ML, 2ML ONE (21:30)
[2019-03-18 21:32] LABS: MEAN CORPUSCULAR HEMOGLOBIN 29.8 pg (27.5-34.5); MEAN CORPUSCULAR HGB CONC 33.5 g/dL (33.2-36.2); MEAN CORPUSCULAR VOLUME 88.8 fL (81-97); MEAN PLATELET VOLUME 7.5 fL (7.4-10.4); PLATELET COUNT 274 x10^3/uL (130-400); RED BLOOD COUNT 4.54 x10^6/uL (4.38-5.82); RED CELL DISTRIBUTION WIDTH 13.3 % (9.4-14.8)
[2019-03-18 21:42] LABS: ALANINE AMINOTRANSFERASE 29 U/L (12-78); ANION GAP 8 mmol/L (5-15); CALCIUM 8.3 mg/dL (8.5-10.1); CHLORIDE 104 mmol/L (98-107); CREATININE 1.37 mg/dL (0.7-1.3)
[2019-03-18 21:44] LABS: ALKALINE PHOSPHATASE 114 U/L (45-117); BILIRUBIN,TOTAL 0.3 mg/dL (0.2-1.0); TOTAL PROTEIN 7.4 g/dL (6.4-8.2)
--- NOTE | 2019-03-18 21:58 | NUR ---
BREAK RN FOR PRIMARY RN SHONNA. REPORT RECEIVED. PT RESTING IN POSITION OF COMFORT. DENIES NEED TO USE RESTROOM. ALL NEEDS MET AND ADDRESSED. IV ANTIBIOTICS INFUSING PER ORDER. FALL PRECAUTIONS IN PLACE. RESP REGULAR AND UNLABORED, PULSE OX 95% RA. REFUSES NEED FOR ZOFRAN AND MORPHINE AT THIS TIME.
[2019-03-18] MEDS ORDERED: SODIUM CHLORIDE FLUSH 10ML SYR IVF PRN (22:00)
[2019-03-18 22:15] LABS: BASOPHILS # (AUTO) 0.06 x10^3/uL (0-0.1); BASOPHILS % (AUTO) 0 % (0-1); EOSINOPHILS # (AUTO) 0.02 x10^3/uL (0-0.4); EOSINOPHILS % (AUTO) 0 % (1-7); LYMPHOCYTES # (AUTO) 1.37 x10^3/uL (1-3.4); LYMPHOCYTES % (AUTO) 9 % (22-44); MD SCAN; MONOCYTES # (AUTO) 1.18 x10^3/uL (0.2-0.8); MONOCYTES % (AUTO) 8 % (2-9); NEUTROPHILS # (AUTO) 12.46 x10^3/uL (1.8-6.8); NEUTROPHILS % (AUTO) 83 % (42-75)
--- NOTE | 2019-03-18 22:22 | NUR ---
REPORT AND CARE BACK TO PRIMARY DAVID KILPATRICK
[2019-03-19] MEDS ORDERED: SODIUM CHLORIDE 0.9% 1,000 ML IV SCH (00:55)
[2019-03-19] MEDS ORDERED: ACETAMINOPHEN 325 MG TABLET PO PRN (01:00)
[2019-03-19] MEDS ORDERED: BISACODYL 10 MG SUPP PR PRN (01:00)
[2019-03-19] MEDS ORDERED: HYDROcodone/APAP 5/325 TABLET PO PRN (01:00)
[2019-03-19] MEDS ORDERED: POLYETHYLENE GLYCOL 17 GM PACKET PO PRN (01:00)
[2019-03-19] MEDS ORDERED: ZOSYN PER PHARMACY MC PRN (01:00)
[2019-03-19] MEDS ORDERED: morphine SULFATE 10 MG/ML, 1ML IVPush PRN (01:00)
[2019-03-19] MEDS ORDERED: ONDANSETRON 2MG/ML, 2ML IVPush PRN (01:00)
[2019-03-19] MEDS ORDERED: hydrALAzine 20 MG/ML, 1ML IVPush PRN (01:00)
[2019-03-19] MEDS ORDERED: VANCOMYCIN PER PHARMACY MC PRN (01:00)
[2019-03-19] MEDS: HEPARIN 5,000 UNITS/ML, 1ML SQ SCH ×3 (02:01→18:07)
[2019-03-19] MEDS ORDERED: PHARMACOKINETIC MONITORING MC PRN (02:30)
[2019-03-19] MEDS ORDERED: PHARMACOKINETIC CONSULTATION MC ONE (02:30)
[2019-03-19] MEDS: PIPERACILLIN/TAZO/PMX 4.5GM 100 ML IV SCH ×4 (03:10→21:07)
[2019-03-19 04:40] VITALS: BP 119/74
[2019-03-19 06:04] LABS: BASOPHILS # (AUTO) 0.03 x10^3/uL (0-0.1); BASOPHILS % (AUTO) 0 % (0-1); EOSINOPHILS # (AUTO) 0.11 x10^3/uL (0-0.4); EOSINOPHILS % (AUTO) 1 % (1-7); LYMPHOCYTES # (AUTO) 1.36 x10^3/uL (1-3.4); LYMPHOCYTES % (AUTO) 16 % (22-44); MD NO; MEAN CORPUSCULAR HEMOGLOBIN 29.5 pg (27.5-34.5); MEAN CORPUSCULAR HGB CONC 32.8 g/dL (33.2-36.2); MEAN CORPUSCULAR VOLUME 90.2 fL (81-97); MEAN PLATELET VOLUME 7.4 fL (7.4-10.4); MONOCYTES # (AUTO) 0.87 x10^3/uL (0.2-0.8); MONOCYTES % (AUTO) 10 % (2-9); NEUTROPHILS # (AUTO) 6.28 x10^3/uL (1.8-6.8); NEUTROPHILS % (AUTO) 73 % (42-75); PLATELET COUNT 240 x10^3/uL (130-400); RED CELL DISTRIBUTION WIDTH 13.8 % (9.4-14.8)
[2019-03-19 06:06] LABS: CHLORIDE 109 mmol/L (98-107)
[2019-03-19 06:10] LABS: ANION GAP 9 mmol/L (5-15); CALCIUM 7.9 mg/dL (8.5-10.1); CREATININE 1.13 mg/dL (0.7-1.3)
[2019-03-19 07:41] VITALS: BP 127/71
[2019-03-19] MEDS: SENNA/DOCUSATE TABLET PO SCH (10:04)
[2019-03-19] MEDS: MUPIROCIN OINT 2%, 22GM TP SCH ×3 (10:04→21:07)
[2019-03-19] MEDS: VANCOMYCIN 2,000 MG in SODIUM CHLORIDE 0.9% 500 ML IV SCH (16:09)
[2019-03-19 16:35] VITALS: BP 143/83
[2019-03-19 19:45] VITALS: BP 177/70
[2019-03-20 01:03] VITALS: BP 146/76
[2019-03-20] MEDS: HEPARIN 5,000 UNITS/ML, 1ML SQ SCH ×3 (02:31→16:31)
[2019-03-20] MEDS: PIPERACILLIN/TAZO/PMX 4.5GM 100 ML IV SCH ×4 (02:56→20:54)
[2019-03-20 04:50] LABS: BASOPHILS # (AUTO) 0.02 x10^3/uL (0-0.1); BASOPHILS % (AUTO) 0 % (0-1); EOSINOPHILS # (AUTO) 0.39 x10^3/uL (0-0.4); EOSINOPHILS % (AUTO) 5 % (1-7); LYMPHOCYTES # (AUTO) 1.75 x10^3/uL (1-3.4); LYMPHOCYTES % (AUTO) 23 % (22-44); MD NO; MEAN CORPUSCULAR HEMOGLOBIN 29.3 pg (27.5-34.5); MEAN CORPUSCULAR HGB CONC 32.8 g/dL (33.2-36.2); MEAN CORPUSCULAR VOLUME 89.4 fL (81-97); MEAN PLATELET VOLUME 6.9 fL (7.4-10.4); MONOCYTES # (AUTO) 0.96 x10^3/uL (0.2-0.8); MONOCYTES % (AUTO) 13 % (2-9); NEUTROPHILS # (AUTO) 4.34 x10^3/uL (1.8-6.8); NEUTROPHILS % (AUTO) 58 % (42-75); PLATELET COUNT 246 x10^3/uL (130-400); RED BLOOD COUNT 4.32 x10^6/uL (4.38-5.82); RED CELL DISTRIBUTION WIDTH 13.9 % (9.4-14.8)
[2019-03-20 05:00] LABS: ANION GAP 6 mmol/L (5-15); CHLORIDE 109 mmol/L (98-107); CREATININE 1.15 mg/dL (0.7-1.3)
[2019-03-20 06:34] VITALS: BP 145/86
[2019-03-20] MEDS: SENNA/DOCUSATE TABLET PO SCH (09:00)
[2019-03-20] MEDS: MUPIROCIN OINT 2%, 22GM TP SCH ×3 (09:15→20:55)
[2019-03-20] MEDS: VANCOMYCIN 2,000 MG in SODIUM CHLORIDE 0.9% 500 ML IV SCH (11:05)
[2019-03-20 12:35] VITALS: BP 134/74
[2019-03-20 19:15] VITALS: BP 155/74
[2019-03-21] MEDS: HEPARIN 5,000 UNITS/ML, 1ML SQ SCH ×2 (01:00→09:31)
[2019-03-21 02:51] VITALS: BP 151/72
[2019-03-21] MEDS: PIPERACILLIN/TAZO/PMX 4.5GM 100 ML IV SCH ×2 (02:52→09:30)
[2019-03-21] MEDS: VANCOMYCIN 2,000 MG in SODIUM CHLORIDE 0.9% 500 ML IV SCH (05:29)
[2019-03-21 06:53] VITALS: BP 147/79
[2019-03-21] MEDS: SENNA/DOCUSATE TABLET PO SCH (09:00)
[2019-03-21] MEDS: MUPIROCIN OINT 2%, 22GM TP SCH (09:31)
[2019-03-21] MEDS ORDERED: SULF-169 PO (12:02)
[2019-03-21] MEDS ORDERED: AMOX1TAB12 PO (12:02)
[2019-03-21] MEDS ORDERED: MUPI22OI2 TP (12:02)
[2019-03-21] MEDS ORDERED: ACET325T26 PO (12:02)
[2019-03-21 12:12] VITALS: BP 147/87
[2019-03-21] MEDS ORDERED: AMOXICILLIN/CLAV 875-125MG TABLET PO SCH (21:00)
[2019-03-21] MEDS ORDERED: SULFAMETH./TRIMETHOPRIM DS 800MG/160MG TABLET PO SCH (21:00)
== END 2019-03-21 15:15 | disposition home or self-care (01) | DRG 871 ==
LOC: ED 20:38 → EDIP 21:52 → 3NE 23:00
PROVIDERS: ADMIT Family Medicine; ATTEND Family Medicine
DX: A41.9 Sepsis, unspecified organism (principal); N17.0 Acute kidney failure with tubular necrosis; L03.115 Cellulitis of right lower limb; L03.116 Cellulitis of left lower limb; R65.20 Severe sepsis without septic shock; I10 Essential (primary) hypertension; F17.210 Nicotine dependence, cigarettes, uncomplicated; D64.9 Anemia, unspecified; Z90.49 Acquired absence of other specified parts of digestive tract; Z86.14 Personal history of Methicillin resistant Staphylococcus aureus infection; Z71.6 Tobacco abuse counseling
CPT/HCPCS: 36415; 80048; 80053; 83605; 84145; 85025; 87040; 93970; 96365; G0378; J1644; J2543; J3370; J7030; J7040

== ENCOUNTER 2019-10-11 18:31 | Emergency (ER) | payer SELFPAY ==
[~2019-10-11] VITALS: Ht 185.4 cm; Wt 100.9 kg
[~2019-10-11 18:31] MED LIST changes: +ACET325T26 PO; +AMOX1TAB12 PO; -IBUP-1484 PO; +IBUP-1902 PO; +MUPI22OI2 TP; +SULF-169 PO
--- NOTE | 2019-10-11 18:39 | NUR ---
[id number]
[2019-10-11 18:52] VITALS: BP 164/94
[2019-10-11] MEDS ORDERED: ACETAMINOPHEN 325 MG TABLET ONE (19:09)
--- NOTE | 2019-10-11 19:13 | NUR ---
MEDS ADMIN PER NOV.
[2019-10-11] MEDS ORDERED: ACETAMINOPHEN 325 MG TABLET PO ONE (19:30)
== END 2019-10-11 19:15 | disposition home or self-care (01) ==
LOC: ED 19:09
DX: J02.0 Streptococcal pharyngitis (principal); I10 Essential (primary) hypertension; F17.200 Nicotine dependence, unspecified, uncomplicated; Z90.49 Acquired absence of other specified parts of digestive tract
CPT/HCPCS: 99283

== ENCOUNTER 2020-11-19 22:26 | Emergency (ER) | payer SELFPAY ==
[~2020-11-19] VITALS: Ht 185.4 cm; Wt 100.9 kg
[2020-11-19 23:40] VITALS: BP 125/71
== END 2020-11-19 23:41 | disposition home or self-care (01) ==
LOC: ED 23:15
DX: J36 Peritonsillar abscess (principal); I10 Essential (primary) hypertension; F17.200 Nicotine dependence, unspecified, uncomplicated
CPT/HCPCS: 99283

== ENCOUNTER 2021-04-26 12:25 | Emergency (ER) | payer MEDICAID ==
[~2021-04-26 12:25] MED LIST changes: +SULF-23 PO; -SULF1TAB24 PO
--- NOTE | 2021-04-26 14:14 | NUR ---
NA X 3 [id number]
== END 2021-04-26 14:16 | disposition left against medical advice (07) ==
LOC: ED 12:40
DX: R22.43 Localized swelling, mass and lump, lower limb, bilateral (principal); Z53.21 Procedure and treatment not carried out due to patient leaving prior to being seen by health care provider

== ENCOUNTER 2021-05-10 14:42 | Inpatient (IN) | payer MEDICAID ==
[~2021-05-10] VITALS: Ht 185.4 cm; Wt 110.7 kg
[2021-05-10 18:07] LABS: BASOPHILS % (AUTO) 0 % (0-1); EOSINOPHILS % (AUTO) 0 % (1-7); LYMPHOCYTES % (AUTO) 4 % (22-44); MEAN CORPUSCULAR HEMOGLOBIN 29.7 pg (27.5-34.5); MEAN PLATELET VOLUME 7.3 fL (7.4-10.4); MONOCYTES % (AUTO) 4 % (2-9); NEUTROPHILS % (AUTO) 92 % (42-75); PLATELET COUNT 211 x10^3/uL (130-400); RED CELL DISTRIBUTION WIDTH 14.4 % (9.4-14.8)
[2021-05-10 18:19] LABS: ANION GAP 6 mmol/L (5-15); CALCIUM 8.3 mg/dL (8.5-10.1); CHLORIDE 101 mmol/L (98-107)
[2021-05-10 18:21] LABS: CREATININE 1.11 mg/dL (0.7-1.3)
--- NOTE | 2021-05-10 18:25 | NUR ---
PT TO ROOM VIA WHEELCHAIR WITH RN AND FRIEND. PT STATES RLE REDNESS/SWELLING X TWO DAYS. DENIES INJURY/FEVER. Addendum: 05/10/21 at 1909 by LWEGENER ADMITS FEVER; DENIES INJURY
[2021-05-10] MEDS ORDERED: ACETAMINOPHEN 500 MG TABLET ONE (18:56)
[2021-05-10] MEDS ORDERED: VANCOMYCIN 2,500 MG in SODIUM CHLORIDE 0.9% 500 ML IV ONE (19:00)
[2021-05-10] MEDS ORDERED: VANCOMYCIN PER PHARMACY MC PRN ×2 (19:00→21:00)
[2021-05-10] MEDS ORDERED: LACTATED RINGERS 1,000 ML IVBOLUS ONE (19:00)
[2021-05-10] MEDS ORDERED: AMPICILLIN/SULBACTAM 3 GM in SODIUM CHLORIDE 0.9% 100 ML IV ONE (19:00)
--- NOTE | 2021-05-10 19:08 | NUR ---
IV ESTABLISHED, BC X1 AND LA DRAWN AND SENT. BP/SPO2 MONITORING IN PLACE. PT MEDICATED PER EMAR FOR FEVER, 102.4F ORAL. LR HUNG PER ORDER. REDNESS/SWELLING OF R LATERAL LOWER LEG X TWO DAYS. HX OF SAME/MRSA REQUIRING ADMISSION. FEVER YESTERDAY, TOOK IBUROFEN THIS AM.
[2021-05-10] MEDS ORDERED: ACETAMINOPHEN 500 MG TABLET PO ONE (19:30)
--- NOTE | 2021-05-10 19:47 | NUR ---
REPORT TO DAVID URBANO ON FLOOR. PT PREPARED FOR TRANSPORT.
--- NOTE | 2021-05-10 19:55 | NUR ---
ABX INITIATED. BC X 2 DRAWN PRIOR TO START. GIORGIO SENT BY PHARMACY, TO GO TO FLOOR WITH PT. RECEIVING RN AWARE.
[2021-05-10 20:17] VITALS: BP 184/103
[2021-05-10] MEDS ORDERED: POTASSIUM CHLORIDE 20 MEQ TAB.ER.PRT PO ONE (21:00)
[2021-05-10] MEDS ORDERED: LABETALOL 5MG/ML, 20ML IVPush PRN (21:00)
[2021-05-10] MEDS ORDERED: IBUPROFEN 600 MG TABLET PO PRN (21:00)
[2021-05-10] MEDS ORDERED: SODIUM CHLORIDE 0.9% 1,000ML IV ONE (21:00)
[2021-05-10 21:23] VITALS: BP 145/91
[2021-05-10] MEDS: ENOXAPARIN 40 MG/0.4 ML SQ SCH (21:28)
[2021-05-11 03:50] VITALS: BP 177/99
[2021-05-11] MEDS: AMPICILLIN/SULBACTAM 3 GM in SODIUM CHLORIDE 0.9% 100 ML IV SCH ×4 (04:26→23:29)
[2021-05-11] MEDS: ACETAMINOPHEN 325 MG TABLET PO PRN ×2 (05:06→17:47)
[2021-05-11 06:06] VITALS: BP 137/83
[2021-05-11 06:12] LABS: BASOPHILS % (AUTO) 0 % (0-1); EOSINOPHILS % (AUTO) 0 % (1-7); LYMPHOCYTES % (AUTO) 5 % (22-44); MEAN CORPUSCULAR HEMOGLOBIN 29.7 pg (27.5-34.5); MEAN CORPUSCULAR HGB CONC 33.8 g/dL (33.2-36.2); MEAN PLATELET VOLUME 7.4 fL (7.4-10.4); MONOCYTES % (AUTO) 4 % (2-9); NEUTROPHILS % (AUTO) 91 % (42-75); PLATELET COUNT 201 x10^3/uL (130-400); RED BLOOD COUNT 4.54 x10^6/uL (4.38-5.82); RED CELL DISTRIBUTION WIDTH 14.2 % (9.4-14.8)
[2021-05-11 06:27] LABS: ANION GAP 5 mmol/L (5-15); CHLORIDE 100 mmol/L (98-107)
[2021-05-11 06:28] LABS: CREATININE 1.13 mg/dL (0.7-1.3)
[2021-05-11] MEDS ORDERED: PHARMACOKINETIC MONITORING MC PRN (11:30)
[2021-05-11] MEDS: VANCOMYCIN 2,000 MG in SODIUM CHLORIDE 0.9% 500 ML IV SCH (12:30)
[2021-05-11 14:04] VITALS: BP 138/74
[2021-05-11 18:11] VITALS: BP 150/83
[2021-05-11] MEDS: ENOXAPARIN 40 MG/0.4 ML SQ SCH (21:19)
[2021-05-12 00:51] VITALS: BP 133/83
[2021-05-12] MEDS: VANCOMYCIN 2,000 MG in SODIUM CHLORIDE 0.9% 500 ML IV SCH ×2 (00:55→13:12)
[2021-05-12] MEDS: AMPICILLIN/SULBACTAM 3 GM in SODIUM CHLORIDE 0.9% 100 ML IV SCH ×4 (05:05→22:50)
[2021-05-12 07:16] VITALS: BP 138/90
[2021-05-12 08:43] LABS: BASOPHILS % (AUTO) 0 % (0-1); EOSINOPHILS % (AUTO) 0 % (1-7); LYMPHOCYTES % (AUTO) 8 % (22-44); MEAN CORPUSCULAR HEMOGLOBIN 29.3 pg (27.5-34.5); MEAN CORPUSCULAR HGB CONC 33.7 g/dL (33.2-36.2); MEAN PLATELET VOLUME 7.5 fL (7.4-10.4); MONOCYTES % (AUTO) 8 % (2-9); NEUTROPHILS % (AUTO) 83 % (42-75); PLATELET COUNT 219 x10^3/uL (130-400); RED BLOOD COUNT 4.65 x10^6/uL (4.38-5.82)
[2021-05-12 08:57] LABS: ALBUMIN 2.4 g/dL (3.4-5.0); ANION GAP 8 mmol/L (5-15); CALCIUM 8.1 mg/dL (8.5-10.1); CHLORIDE 101 mmol/L (98-107)
[2021-05-12 08:58] LABS: CREATININE 0.89 mg/dL (0.7-1.3)
[2021-05-12] MEDS ORDERED: POTASSIUM CHLORIDE 20 MEQ TAB.ER.PRT PO ONE (10:00)
[2021-05-12 19:20] VITALS: BP 158/89
[2021-05-12] MEDS: ENOXAPARIN 40 MG/0.4 ML SQ SCH (20:42)
[2021-05-13 00:35] VITALS: BP 128/85
[2021-05-13] MEDS: VANCOMYCIN 2,000 MG in SODIUM CHLORIDE 0.9% 500 ML IV SCH ×2 (00:57→13:35)
[2021-05-13] MEDS: AMPICILLIN/SULBACTAM 3 GM in SODIUM CHLORIDE 0.9% 100 ML IV SCH ×4 (05:30→22:45)
[2021-05-13 06:55] VITALS: BP 137/82
[2021-05-13 07:38] LABS: BASOPHILS % (AUTO) 1 % (0-1); EOSINOPHILS % (AUTO) 1 % (1-7); LYMPHOCYTES % (AUTO) 14 % (22-44); MEAN CORPUSCULAR HEMOGLOBIN 29.5 pg (27.5-34.5); MEAN PLATELET VOLUME 7.1 fL (7.4-10.4); MONOCYTES % (AUTO) 12 % (2-9); NEUTROPHILS % (AUTO) 73 % (42-75); PLATELET COUNT 249 x10^3/uL (130-400); RED BLOOD COUNT 4.27 x10^6/uL (4.38-5.82); RED CELL DISTRIBUTION WIDTH 14.3 % (9.4-14.8)
[2021-05-13 07:49] LABS: ANION GAP 9 mmol/L (5-15); CALCIUM 7.8 mg/dL (8.5-10.1); CHLORIDE 104 mmol/L (98-107); CREATININE 0.72 mg/dL (0.7-1.3)
[2021-05-13] MEDS ORDERED: POTASSIUM CHLORIDE 20 MEQ TAB.ER.PRT PO ONE (12:30)
[2021-05-13 13:47] VITALS: BP 126/79
[2021-05-13 19:22] VITALS: BP 163/93
[2021-05-13] MEDS: ENOXAPARIN 40 MG/0.4 ML SQ SCH (21:00)
[2021-05-14] MEDS: VANCOMYCIN 2,000 MG in SODIUM CHLORIDE 0.9% 500 ML IV SCH ×2 (01:24→13:38)
[2021-05-14 01:25] VITALS: BP 131/81
[2021-05-14 05:07] LABS: BASOPHILS % (AUTO) 0 % (0-1); EOSINOPHILS % (AUTO) 1 % (1-7); LYMPHOCYTES % (AUTO) 16 % (22-44); MEAN CORPUSCULAR HEMOGLOBIN 29.4 pg (27.5-34.5); MEAN CORPUSCULAR HGB CONC 33.9 g/dL (33.2-36.2); MEAN PLATELET VOLUME 7.3 fL (7.4-10.4); MONOCYTES % (AUTO) 12 % (2-9); NEUTROPHILS % (AUTO) 70 % (42-75); PLATELET COUNT 264 x10^3/uL (130-400); RED BLOOD COUNT 4.08 x10^6/uL (4.38-5.82); RED CELL DISTRIBUTION WIDTH 13.7 % (9.4-14.8)
[2021-05-14 05:37] LABS: ANION GAP 6 mmol/L (5-15); CHLORIDE 106 mmol/L (98-107)
[2021-05-14 08:32] VITALS: BP 143/91
[2021-05-14] MEDS: AMPICILLIN/SULBACTAM 3 GM in SODIUM CHLORIDE 0.9% 100 ML IV SCH ×3 (08:33→22:37)
[2021-05-14 13:27] VITALS: BP 165/82
[2021-05-14 20:01] VITALS: BP 148/92
[2021-05-14] MEDS: ENOXAPARIN 40 MG/0.4 ML SQ SCH (20:10)
[2021-05-15] MEDS: VANCOMYCIN 2,000 MG in SODIUM CHLORIDE 0.9% 500 ML IV SCH (01:28)
[2021-05-15 01:32] VITALS: BP 158/96
[2021-05-15] MEDS: AMPICILLIN/SULBACTAM 3 GM in SODIUM CHLORIDE 0.9% 100 ML IV SCH ×2 (04:39→09:47)
[2021-05-15 07:53] VITALS: BP 148/97
[2021-05-15 08:53] LABS: MEAN CORPUSCULAR HEMOGLOBIN 29.5 pg (27.5-34.5); MEAN CORPUSCULAR HGB CONC 33.7 g/dL (33.2-36.2); PLATELET COUNT 292 x10^3/uL (130-400); RED BLOOD COUNT 4.16 x10^6/uL (4.38-5.82); RED CELL DISTRIBUTION WIDTH 14.1 % (9.4-14.8)
[2021-05-15] MEDS ORDERED: LOSARTAN 50MG TABLET PO SCH (09:00)
[2021-05-15 09:03] LABS: ALBUMIN 2.1 g/dL (3.4-5.0); ANION GAP 11 mmol/L (5-15); CALCIUM 8.4 mg/dL (8.5-10.1); CHLORIDE 103 mmol/L (98-107)
[2021-05-15 09:07] LABS: ALANINE AMINOTRANSFERASE 80 U/L (12-78); ALKALINE PHOSPHATASE 100 U/L (45-117); BILIRUBIN,TOTAL 0.5 mg/dL (0.2-1.0); CREATININE 0.83 mg/dL (0.7-1.3); TOTAL PROTEIN 7.2 g/dL (6.4-8.2)
[2021-05-15 09:19] LABS: BAND#(MANUAL) 0.16 x10^3/uL; BANDS%(MANUAL) 2 % (0-7); EOS#(MANUAL) 0.24 x10^3/uL (0.0-0.4); EOS% (MANUAL) 3 % (1-7); LYMPH#(MANUAL) 1.05 x10^3/uL (1-3.4); LYMPHS% (MANUAL) 13 % (22-44); METAMYELOCYTES# (MANUAL) 0.08 x10^3/uL (0-0); METAMYELOCYTES% (MANUAL) 1 % (0-1); MONOS#(MANUAL) 0.73 x10^3/uL (0.3-2.7); MONOS% (MANUAL) 9 % (2-9); SEG#(MANUAL) 5.83 x10^3/uL (1.8-6.8); SEGS% (MANUAL) 72 % (42-75)
[2021-05-15 09:21] LABS: <PLATELET ESTIMATE> ADEQUATE; <PLT MORPHOLOGY> NORMAL PLT MORPH; <RBC MORPHOLOGY> NORMAL
[2021-05-15] MEDS ORDERED: CEPH750C9 PO (10:51)
[2021-05-15] MEDS ORDERED: LOSA50TA2 PO (10:51)
== END 2021-05-15 12:58 | disposition home or self-care (01) | DRG 872 ==
LOC: ED 19:40 → 3N 20:12
PROVIDERS: ADMIT Family Medicine; ATTEND Hospitalist
DX: A41.9 Sepsis, unspecified organism (principal); E87.1 Hypo-osmolality and hyponatremia; L03.115 Cellulitis of right lower limb; E86.1 Hypovolemia; E87.6 Hypokalemia; F17.200 Nicotine dependence, unspecified, uncomplicated; I10 Essential (primary) hypertension; Z86.14 Personal history of Methicillin resistant Staphylococcus aureus infection; Z90.49 Acquired absence of other specified parts of digestive tract; Z89.022 Acquired absence of left finger(s); Z71.6 Tobacco abuse counseling
CPT/HCPCS: 36415; 80048; 80053; 80069; 80202; 82040; 83605; 85025; 87040; 96365; 96375; G0378; J0295; J1650; J3370; J7030; J7040; J7120